=== PATIENT | female | born 1995 | race Caucasian/White ===

== ENCOUNTER 2020-10-27 11:02 | Emergency (ER) | payer OTHER ==
[~2020-10-27] VITALS: Ht 165.1 cm; Wt 83.9 kg
[2020-10-27 11:22] VITALS: BP_SYST 133
[2020-10-27 12:07] LABS: BASOPHILS % (AUTO) 0.4 % (0.0-2.0); EOSINOPHILS % (AUTO) 0.6 % (0.0-4.0); HEMOGLOBIN 11.4 g/dL (12.0-16.0); LYMPHOCYTES # (AUTO) 1.2 K/uL (1.0-5.5); MEAN CORPUSCULAR HEMOGLOBIN 30 pg (27-31); MEAN CORPUSCULAR HGB CONC 34 % (32-36); MEAN CORPUSCULAR VOLUME 90 fL (79.0-98.0); MONOCYTES # (AUTO) 0.4 K/uL (0.0-1.0); NEUTROPHILS # (AUTO) 3.4 K/uL (1.8-7.7); PLATELET COUNT (AUTO) 200 K/uL (130-430); RED BLOOD CELL COUNT(AUTO) 3.78 MIL/uL (4.2-6.2); RED CELL DISTRIBUTION WIDTH 14.1 % (9.0-15.0)
[2020-10-27 12:23] LABS: CALCIUM 8.5 mg/dL (8.4-11.0); CREATININE 0.67 mg/dL (0.55-1.30); POTASSIUM 4.2 mmol/L (3.5-5.1)
[2020-10-27 12:29] LABS: ALBUMIN 2.7 g/dL (3.4-4.8); TOTAL BILIRUBIN 0.4 mg/dL (0.0-1.0)
[2020-10-27 12:38] LABS: C-REACTIVE PROTEIN QUANT 5.7 mg/dL (0-0.5)
[2020-10-27] MEDS ORDERED: NEOM28.36 TP (13:13)
[2020-10-27] MEDS ORDERED: CLE150 GT (13:13)
[2020-10-27 13:22] VITALS: BP_SYST 133
== END 2020-10-27 13:22 | disposition home or self-care (01) ==
LOC: SED 11:02
DX: K13.0 Diseases of lips (principal); Z79.899 Other long term (current) drug therapy
CPT/HCPCS: 36415; 80053; 83605; 85025; 86140; 99283

== ENCOUNTER 2021-07-13 16:50 | Emergency (ER) | payer MEDICAID, SELFPAY ==
[~2021-07-13] VITALS: Ht 165.1 cm; Wt 74.8 kg
[~2021-07-13 16:50] MED LIST: CLE150 GT; NEOM28.36 TP
[2021-07-13 17:00] VITALS: BP_SYST 165
--- NOTE | 2021-07-13 17:00 | NUR ---
PT FROM HOME WITH CC OF HEARING VOICES THAT WANT HER TO HANG HERSELF. PT IS AAOx3, NAD, VSS, SEEMS TO BE UNDER THE INFLUENCE OF UNKNOWN SUBSTANCE. PT TO BE FURTHER ASSESSED BY ED MD
[2021-07-13] MEDS ORDERED: ACETAMINOPHEN 500 MG TABLET PO ONE (17:15)
--- NOTE | 2021-07-13 17:32 | NUR ---
this senior grant writer assess pt pt is alert and orient with hallucination overall appearance fair teaching started r/t her health and safety is aware if she feels like hurting herself to let this senior grant writer know will be to be monitor constantly for suicidal ideation
[2021-07-13 17:37] LABS: HEMOGLOBIN 13.1 g/dL (12.0-16.0); MEAN CORPUSCULAR VOLUME 85 fL (79.0-98.0); WHITE BLOOD COUNT (AUTO) 6.5 K/uL (4.8-10.8)
[2021-07-13 17:43] LABS: BARBITURATE, URINE NEGATIVE (NEG <=200); BENZODIAZEPINE, URINE NEGATIVE (NEG <=150); CANNABINOID, URINE POSITIVE (NEG <=50); COCAINE, URINE NEGATIVE (NEG <=150); METHAMPHETAMINES SCREEN,URINE POSITIVE (NEG <=500); OPIATE, URINE NEGATIVE (NEG <=100); PHENCYCLIDINE SCREEN,URINE NEGATIVE (NEG <=25); UR TRICYCLIC ANTIDEPRESSANTS NEGATIVE (NEG <=300); URINE AMPHETAMINE POSITIVE (NEG <=500); URINE METHADONE NEGATIVE (NEG <=200); URINE OXYCODONE SCREEN NEGATIVE (NEG <=100); URINE PROPOXYPHENE SCREEN NEGATIVE (NEG <=300)
[2021-07-13 17:44] LABS: BASOPHILS % (AUTO) 0.4 % (0.0-2.0); EOSINOPHILS % (AUTO) 0.7 % (0.0-4.0); HEMATOCRIT 39.5 % (36-48); LYMPHOCYTES # (AUTO) 1.7 K/uL (1.0-5.5); LYMPHOCYTES % (AUTO) 25.8 % (20.5-51.5); MEAN CORPUSCULAR HEMOGLOBIN 28 pg (27-31); MEAN CORPUSCULAR HGB CONC 33 % (32-36); MONOCYTES # (AUTO) 0.7 K/uL (0.0-1.0); MONOCYTES % (AUTO) 10.5 % (1.7-9.3); NEUTROPHILS % (AUTO) 62.6 % (40.0-70.0); PLATELET COUNT (AUTO) 284 K/uL (130-430); RED BLOOD CELL COUNT(AUTO) 4.63 MIL/uL (4.2-6.2); RED CELL DISTRIBUTION WIDTH 14.6 % (9.0-15.0)
[2021-07-13 17:45] LABS: ANION GAP 7 (5-15); CALCIUM 9.6 mg/dL (8.4-11.0); CHLORIDE 103 mmol/L (98-107); CREATININE 0.82 mg/dL (0.55-1.30); GLUCOSE 110 mg/dL (70-99); POTASSIUM 4.7 mmol/L (3.5-5.1); SODIUM SERUM 139 mmol/L (136-145); UREA NITROGEN, BLOOD 18 mg/dL (8-21)
[2021-07-13 17:47] LABS: GFR AFRICAN AMERICAN 108 mL/min (>90)
[2021-07-13 17:51] LABS: ALANINE AMINOTRANSFERASE 32 U/L (12-78); ALBUMIN 3.8 g/dL (3.4-4.8); ASPARTATE AMINOTRANSFERASE 18 U/L (10-37); TOTAL BILIRUBIN 0.2 mg/dL (0.0-1.0)
[2021-07-13 17:54] LABS: ACETAMINOPHEN < 1 ug/mL (1-30); ALCOHOL, BLOOD < 3 mg/dL (<10)
[2021-07-13] MEDS ORDERED: HALOPERIDOL LACTATE 5 MG/ML VIAL IM PRN (18:00)
[2021-07-13] MEDS ORDERED: DIPHENHYDRAMINE INJ 50 MG/ML VIAL IM PRN (18:00)
[2021-07-13] MEDS ORDERED: LORazepam 2 MG/ML VIAL IM PRN (18:00)
--- NOTE | 2021-07-13 18:00 | NUR ---
pt yelling, screaming, noncompliance to care is on a 1:1 sitter and being physical to staff md myers
[2021-07-13] MEDS ORDERED: HALOPERIDOL LACTATE 5 MG/ML VIAL IM ONE (18:15)
[2021-07-13] MEDS ORDERED: LORazepam 2 MG/ML VIAL IM ONE (18:15)
[2021-07-13] MEDS ORDERED: DIPHENHYDRAMINE INJ 50 MG/ML VIAL IM ONE (18:15)
--- NOTE | 2021-07-13 18:15 | NUR ---
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
--- NOTE | 2021-07-13 18:29 | NUR ---
pt was given benadryl, ativan and haldol as ordered pt is on a library monitor and continue to have a 1:1 sitter at beside vss pt condition appearances stable will continue to monitor her
--- NOTE | 2021-07-13 19:25 | NUR ---
Patient is A/Ox4, lying in bed resting comfortably, no s/s of distress. Patients skin is intact, patient self turns. Patient stated pain is 0/10. Patient's clothing stored away and labeled. Room checked and patient does not have any objects in room. Patient chest rise and fall symmetrical. Bed in low and locked position, bed rails up. Addendum: 07/13/21 at 2004 by [email or web address] Patient is A/Ox4, lying in bed resting comfortably, no s/s of distress. Patients skin is intact, patient self turns. Patient stated pain is 0/10. Patient's clothing stored away and labeled. Room checked and patient does not have any objects in room. Patient verbalized no SI/HI. Patient chest rise and fall symmetrical. Bed in low and locked position, bed rails up. Addendum: 07/14/21 at 622 by [email or web address] Patient is A/Ox4, lying in bed resting comfortably, no s/s of distress. Patients skin is intact, patient self turns. Patient stated pain is 0/10. Patient's clothing stored away and labeled. Room checked and patient does not have any objects in room. Patient denies SI/HI. Patient chest rise and fall symmetrical. Bed in low and locked position, bed rails up.
--- NOTE | 2021-07-13 21:00 | NUR ---
Patient is A/Ox4, lying in bed resting comfortably, no s/s of distress. Patients skin is intact, patient self turns. Patient stated pain is 0/10. Patient's clothing stored away and labeled. Room checked and patient does not have any objects in room. Patient chest rise and fall symmetrical. Bed in low and locked position, bed rails up. Addendum: 07/14/21 at 0622 by [email or web address] Patient is A/Ox4, lying in bed resting comfortably, no s/s of distress. Patients skin is intact, patient self turns. Patient stated pain is 0/10. Patient's clothing stored away and labeled. Room checked and patient does not have any objects in room. Patient denies SI/HI. Patient chest rise and fall symmetrical. Bed in low and locked position, bed rails up.
--- NOTE | 2021-07-13 21:04 | NUR ---
Spoke with nurse from Davy mabry RN. Addendum: 07/13/21 at 211 by [email or web address] Spoke with nurse from Davy Suarez RN. Report given to Matt Bhatti RN, inclusing; mentation, H&P, mediical/surgical history, patient denies SI/HI, medications given, current vital signs, patient not on hold, skin intact, patient declining giving urine sample, patient has no IV etc. Davy Ryder RN verbalized understanding of report. Addendum: 07/13/21 at 211 by [email or web address] Spoke with nurse from Davy Suarez RN. Report given to Matt Bhatti RN, inclusing; mentation, H&P, mediical/surgical history, patient denies SI/HI, medications given, current vital signs, patient not on hold, skin intact, patient declining giving urine sample, patient has no IV etc. Matt Coleman nurseDavy RN verbalized understanding of report. Matt Coleman nurseDavy RN stated patient will be going to [facility] and patient's physician is Dr. Benitez.
--- NOTE | 2021-07-14 05:20 | NUR ---
Patient ate sandwich and drank water without difficulty.
--- NOTE | 2021-07-14 05:24 | NUR ---
Patient gave urine sample. HCG test performed, result negative. Result documented in binder in ER.
[2021-07-14 06:16] VITALS: BP_SYST 115
--- NOTE | 2021-07-14 06:19 | NUR ---
Patient is A/Ox4, lying in bed resting comfortably, no s/s of distress. Patients skin is intact, patient self turns. Patient stated pain is 0/10. Patient's clothing stored away and labeled. Room checked and patient does not have any objects in room. Patient chest rise and fall symmetrical. Patient safely transferred by [facility] to [facility] for transfer to Ambulance. Patient safely taken to ambulace with all belongings, skin intact, pain 0/10. Patient still denies SI/HI. All transfer paperwork sent with ambulance staff. Addendum: 07/14/21 at 0624 by [email or web address] Patient is A/Ox4, lying in bed resting comfortably, no s/s of distress. Patients skin is intact, patient self turns. Patient stated pain is 0/10. Patient's clothing stored away and labeled. Room checked and patient does not have any objects in room. Patient chest rise and fall symmetrical. Patient safely transferred by [facility] to [facility] for transfer to Ambulance. Patient safely taken to ambulace with all belongings, skin intact, pain 0/10. Patient still denies SI/HI. All transfer paperwork sent with ambulance staff. Elizabeth Coleman called at [phone], and informed of patient's departure with [facility] for Elizabeth Coleman, and report given again to Joselito VIDAL. [facility] staff, Joselito VIDAL, verbally acknowledged understanding of report, no further questions.
== END 2021-07-14 06:16 | disposition short-term general hospital (02) ==
LOC: SED 16:50
DX: F23 Brief psychotic disorder (principal); F19.10 Other psychoactive substance abuse, uncomplicated; F12.19 Cannabis abuse with unspecified cannabis-induced disorder; Z20.822 Contact with and (suspected) exposure to COVID-19
CPT/HCPCS: 36415; 80053; 80307; 81025; 85025; 87426; 96372; 99285; G0480; G0481; G0482; J1200; J1630; J2060

== ENCOUNTER 2022-10-04 10:07 | Emergency (ER) | payer MEDICAID ==
[~2022-10-04] VITALS: Ht 162.6 cm; Wt 68.0 kg
[2022-10-04 10:12] VITALS: BP_SYST 140
[2022-10-04] MEDS ORDERED: IBUPROFEN 800 MG TABLET PO ONE (11:00)
[2022-10-04 12:35] VITALS: BP_SYST 140
== END 2022-10-04 12:39 | disposition home or self-care (01) ==
LOC: SED 10:07
DX: S13.4XXA Sprain of ligaments of cervical spine, initial encounter (principal); S00.81XA Abrasion of other part of head, initial encounter; F19.10 Other psychoactive substance abuse, uncomplicated; Z79.899 Other long term (current) drug therapy; W18.40XA Slipping, tripping and stumbling without falling, unspecified, initial encounter; Y93.89 Activity, other specified; Y92.89 Other specified places as the place of occurrence of the external cause; Y99.8 Other external cause status
CPT/HCPCS: 70450-TC; 72125-TC; 76376; 81025; 99284

== ENCOUNTER 2022-11-10 20:16 | Emergency (ER) | payer MEDICAID ==
[~2022-11-10] VITALS: Ht 165.1 cm; Wt 63.5 kg
[2022-11-10 21:27] VITALS: BP_SYST 128; PULSE 80; RESP 16; TEMP 98.2; O2SAT 98
[2022-11-10 21:39] VITALS: BP_SYST 128; PULSE 80; RESP 16; TEMP 98.2; O2SAT 98
== END 2022-11-10 21:51 | disposition home or self-care (01) ==
LOC: SED 20:16
DX: Z00.00 Encounter for general adult medical examination without abnormal findings (principal); Z79.899 Other long term (current) drug therapy
CPT/HCPCS: 99283

== ENCOUNTER 2023-07-19 23:48 | Emergency (ER) | payer MEDICAID ==
[~2023-07-19] VITALS: Ht 170.2 cm; Wt 81.6 kg
[2023-07-20 00:09] VITALS: BP_SYST 152; PULSE 93; RESP 15; TEMP 98.1; O2SAT 100
[2023-07-20 00:40] VITALS: BP_SYST 152; PULSE 93; RESP 15; TEMP 98.1; O2SAT 100
== END 2023-07-20 00:40 ==
LOC: SED 23:48
DX: F11.10 Opioid abuse, uncomplicated (principal)
CPT/HCPCS: 99283